=== PATIENT | male | born 1985 | race Caucasian/White ===

== ENCOUNTER 2019-12-26 13:20 | Outpatient (CLI) | payer MEDICAID, SELFPAY ==
--- NOTE | ~2019-12-26 | XR_ITS ---
EXAMINATION: XR hip RT min 2V DATE: 12/26/2019 13:49 INDICATION: Right hip pain. TECHNIQUE: 2 views of right hip were obtained. COMPARISON: Pelvis radiograph 02/12/2013 FINDINGS: Bone alignment is normal. No fracture. There is mild right hip osteoarthritis. IMPRESSION: 1. Mild right hip osteoarthritis. Reviewed, dictated and finalized at location A.
--- NOTE | ~2019-12-26 | XR_ITS ---
EXAMINATION: XR lumbar spine 2-3V EXAM DATE: 12/26/2019 13:49 INDICATION: Right hip pain, right-sided lumbar radiculopathy. TECHNIQUE: Lumber spine frontal, lateral, lateral L5-S1 projections for interpretation. There is no prior study for comparison. FINDINGS: Rudimentary S1-S2 disc. There is mild thoracolumbar disc disease with small Schmorl's node s identified at most of the endplates. There is mild lumbar facet arthropathy. There is no spondyloly sis. The vertebral bodies are aligned in the AP dimension. The vertebral body heights are maintained. Sacrum, sacroiliac joints, sacral arcuate lines are intact. IMPRESSION: Mild lumbar spondylosis. Reviewed, dictated and finalized at location A. IMPRESSION: Mild lumbar spondylosis.
== END 2019-12-26 13:21 | disposition home or self-care (01) ==
PROVIDERS: PCP Family Medicine; Visit Provider Physician Assistant
DX: M25.551 Pain in right hip (principal); M54.16 Radiculopathy, lumbar region
CPT/HCPCS: 72100; 73502

== ENCOUNTER 2023-07-22 18:22 | Emergency (ER) | payer OTHER, SELFPAY ==
[2023-07-22 18:23] VITALS: BP 148/85; PULSE 98; RESP 20; TEMP 36.4; O2SAT 98
[2023-07-22 20:57] VITALS: BP 164/92; PULSE 107; TEMP 36.6; O2SAT 98
--- NOTE | 2023-07-22 23:55 | ED.GENADULT ---
HPI - General Adult General Chief complaint: Dental/Oral Stated complaint: abscess tooth Time Seen by Provider: 07/22/23 23:44 History of Present Illness HPI narrative: Patient 38-year-old gentleman presents emergency department chief complaint of dental pain. Patient reports that he has pain in his upper molar area on his mouth. The patient reports that he was treated with antibiotics sometime ago after he had had a dental infection but did not follow-up with a dentist. Patient denies trismus denies difficulty swallowing denies shortness of breath. Related Data Allergies Allergy/AdvReac Type Severity Reaction Status Date / Time aspirin Allergy Mild Hives Unverified 07/22/23 23:24 Review of Systems Review of Systems: A 10 system review of systems was completed on the patient and is negative except for what is stated in the HPI. Nursing and ancillary documentation was reviewed. Exam Narrative: GENERAL: Well-appearing, well-nourished, and in no acute distress. HEAD: Normocephalic, atraumatic. EYES: PERRLA and EOMI. ENT: Nares clear, no rhinorrhea or epistaxis. Mucous membranes moist. Multiple dental caries redness of the upper mucosa at the maxillary right upper molar NECK: Supple. CHEST: Clear to auscultation. No respiratory distress. HEART: Regular rate and rhythm. No murmur heard. Normal peripheral pulses. ABDOMEN: Soft, nontender, nondistended, normal active bowel sounds. EXTREMITIES: Normal range of motion. No edema. SKIN: Warm, dry, no rash. NEURO: No focal deficits. Alert and oriented x3. PSYCH: Normal mood and affect. Course Vital Signs Vital signs: Vital Signs Temperature 36.4 C 07/22/23 18:23 Pulse Rate 98 07/22/23 18:23 Respiratory Rate 20 07/22/23 18:23 Blood Pressure 148/85 H 07/22/23 18:23 Pulse Oximetry 98 07/22/23 18:23 Oxygen Delivery Room Air 07/22/23 18:23 Temperature 36.6 C 07/22/23 20:57 Pulse Rate 107 H 07/22/23 20:57 Respiratory Rate 20 07/22/23 18:23 Blood Pressure 164/92 H 07/22/23 20:57 Pulse Oximetry 98 07/22/23 20:57 Oxygen Delivery Room Air 07/22/23 18:23 Medical Decision Making MDM Narrative Medical decision making narrative: Differential diagnosis includes dental abscess, dental caries. Patient started on amoxicillin At this time the patient does not require advanced imaging. Patient should follow-up with a dentist as soon as possible Vital Signs Vital Signs: Vital Signs Temperature 36.4 C 07/22/23 18:23 Pulse Rate 98 07/22/23 18:23 Respiratory Rate 20 07/22/23 18:23 Blood Pressure 148/85 H 07/22/23 18:23 Pulse Oximetry 98 07/22/23 18:23 Oxygen Delivery Room Air 07/22/23 18:23 Temperature 36.6 C 07/22/23 20:57 Pulse Rate 107 H 07/22/23 20:57 Respiratory Rate 20 07/22/23 18:23 Blood Pressure 164/92 H 07/22/23 20:57 Pulse Oximetry 98 07/22/23 20:57 Oxygen Delivery Room Air 07/22/23 18:23 Discharge Plan Discharge Clinical Impression: Dental abscess Patient Disposition: Home, Self-Care Condition: Stable Instructions: Antibiotic Form, Dental Abscess (ED) Prescriptions: New amoxicillin 500 mg capsule 500 mg PO Q12H Qty: 20 0RF Follow-up/Referrals: Bruno,MD Andrew [Primary Care Provider] - Stand Alone Forms: Work/School Release IP Time of Disposition: 23:57
[2023-07-23] MEDS: AMOXICILLIN 500 MG CAPSULE PO (00:41)
[2023-07-23 00:42] VITALS: BP 157/98; PULSE 88; RESP 20; O2SAT 98
== END 2023-07-23 01:06 | disposition home or self-care (01) ==
LOC: ANHED 07-23
PROVIDERS: Emergency Provider Emergency Medicine; PCP Internal Medicine
DX: K04.7 Periapical abscess without sinus (principal)
CPT/HCPCS: 99283; A9270